=== PATIENT | female | born 1980 | race Caucasian/White ===

== ENCOUNTER 2019-10-14 11:03 | Day surgery (SDC) | payer OTHER ==
[2019-10-14 14:00] VITALS: TEMP 98
[2019-10-14 14:37] VITALS: BP 113/66; PULSE 84
--- NOTE | 2019-10-16 18:33 | PATH ---
Surgical Pathology Report Patient Name: ABHISHEK GARCIA [facility]. Rec. #: [id number] /Age/Gender: 1980 (Age: 38) / F Account: [id number] Location: U-ENDOSCOPY Taken: 10/14/2019 Received: 10/15/2019 Reported: 10/16/2019 Physicians: Keysha Duran M.D. Specimen(s) Received A: DUODENUM B: ANTRUM, GREATER CURVATURE C: ANTRUM, LESSER CURVATURE D: ANGULARIS E: BODY, GREATER CURVATURE F: BODY, LESSER CURVATURE G: ASCENDING COLON POLYP H: ASCENDING COLON POLYP I: SIGMOID POLYP Clinical History Vomiting, constipation Postoperative diagnosis: Normal endoscopy, colon polyps Final Diagnosis A. DUODENUM, BIOPSY: DUODENAL MUCOSA WITHOUT SIGNIFICANT PATHOLOGIC FINDINGS. B. STOMACH, ANTRUM, GREATER CURVATURE, BIOPSY: GASTRIC ANTRAL MUCOSA WITH MILD CHRONIC GASTRITIS. IMMUNOHISTOCHEMICAL STAIN FOR H. PYLORI IS NEGATIVE. C. STOMACH, ANTRUM, LESSER CURVATURE, BIOPSY: GASTRIC ANTRAL MUCOSA WITH MILD CHRONIC GASTRITIS. IMMUNOHISTOCHEMICAL STAIN FOR H. PYLORI IS NEGATIVE. D. STOMACH, ANGULARIS, BIOPSY: GASTRIC BODY MUCOSA WITH MILD CHRONIC GASTRITIS. IMMUNOHISTOCHEMICAL STAIN FOR H. PYLORI IS NEGATIVE. E. STOMACH, BODY, GREATER CURVATURE, BIOPSY: GASTRIC BODY MUCOSA WITH MODERATE CHRONIC FOCAL ACTIVE GASTRITIS. IMMUNOHISTOCHEMICAL STAIN FOR H. PYLORI IS NEGATIVE. F. STOMACH, BODY, LESSER CURVATURE, BIOPSY: GASTRIC BODY MUCOSA WITH MODERATE CHRONIC GASTRITIS AND FOCAL INTESTINAL METAPLASIA. NO DYSPLASIA IDENTIFIED. IMMUNOHISTOCHEMICAL STAIN FOR H. PYLORI IS NEGATIVE. G. ASCENDING COLON, POLYP, POLYPECTOMY: TUBULAR ADENOMA. H. ASCENDING COLON, POLYP, POLYPECTOMY: MATURE FIBROADIPOSE TISSUE WITH OVERLYING HYPERPLASTIC COLONIC MUCOSA CONSISTENT WITH SUBMUCOSAL LIPOMA. I. SIGMOID COLON, POLYP, POLYPECTOMY: HYPERPLASTIC POLYP. Electronically Signed Verna Childers M.D. Gross Description A. Received in formalin, labeled "biopsy duodenum" are 3 bonner, irregular portions of soft tissue averaging 0.3 cm. in greatest dimension. The specimens are submitted in toto in one cassette. B. Received in formalin, labeled "biopsy antrum greater curvature" are 4 bonner, irregular portions of soft tissue ranging from 0.2-0.4 cm. in greatest dimension. The specimens are submitted in toto in one cassette. C. Received in formalin, labeled "biopsy antrum lesser curvature" are 4 bonner, irregular portions of soft tissue ranging from 0.3-0.4 cm. in greatest dimension. The specimens are submitted in toto in one cassette. D. Received in formalin, labeled "biopsy angularis" are 2 bonner, irregular portions of soft tissue measuring 0.3 and 0.4 cm. in greatest dimension. The specimens are submitted in toto in one cassette. E. Received in formalin, labeled "biopsy of body greater curvature" are 3 bonner, irregular portions of soft tissue ranging from 0.2-0.3 cm. in greatest dimension. The specimens are submitted in toto in one cassette. F. Received in formalin, labeled "biopsy body lesser curvature" are 4 bonner, irregular portions of soft tissue ranging from 0.2-0.3 cm. in greatest dimension. The specimens are submitted in toto in one cassette. G. Received in formalin, labeled "biopsy ascending polyp" are 3 bonner, irregular portions of soft tissue ranging from 0.2-0.7 cm. in greatest dimension. The specimens are submitted in toto in one cassette. H. Received in formalin labeled "polyp ascending colon" are 2 bonner portions of soft tissue measuring 0.5 and 0.7 cm in greatest dimension. The specimens are submitted in toto in one fat. I. Received in formalin, labeled "biopsy sigmoid polyp" is a bonner, irregular portion of soft tissue measuring 0.6 cm. in greatest dimension. The specimen is submitted in toto in one cassette. 10/15/2019 [facility]
== END 2019-10-14 14:47 | disposition home or self-care (01) ==
LOC: JASU-ENDO 11:03
PROVIDERS: ATTEND Internal Medicine Gastroenterology
PROC: 0DBN8ZX Excision of Sigmoid Colon, Via Natural or Artificial Opening Endoscopic, Diagnostic (ICD-10-PCS; 2019-10-14)
PROC: 0DBK8ZX Excision of Ascending Colon, Via Natural or Artificial Opening Endoscopic, Diagnostic (ICD-10-PCS; principal; 2019-10-14 12:45)
DX: R19.4 Change in bowel habit (principal); R11.0 Nausea; D12.2 Benign neoplasm of ascending colon; D12.5 Benign neoplasm of sigmoid colon
CPT/HCPCS: 81025; 88305-TC; 88342-TC

== ENCOUNTER 2022-12-05 00:14 | Observation (INO) | payer OTHER ==
[2022-12-05 00:48] VITALS: BMI 28.3
[2022-12-05] MEDS ORDERED: ACETAMINOPHEN 500 MG TABLET (FP) PO ONE (01:24)
[2022-12-05] MEDS ORDERED: ACETAMINOPHEN 500 MG TABLET (FP) ONE (01:51)
[2022-12-05 02:18] LABS: BASO % 0.1 % (0-2.0); EOS % 2.7 % (0-4.5); HEMATOCRIT 35.2 % (32.4-45.2); HEMOGLOBIN 11.6 GM/dL (10.7-15.3); LYMPH % 21.9 % (8-40); MCH 25.5 pg (25.7-33.7); MEAN CELL VOLUME 77.3 fl (80-96); MONO % 7.3 % (3.8-10.2); PLATELET COUNT 336 10^3/uL (134-434); RBC 4.55 M/mm3 (3.60-5.2); RDW 14.7 % (11.6-15.6); WHITE BLOOD COUNT 8.1 K/mm3 (4.0-10.0)
[2022-12-05 02:28] LABS: INR 1.08 (0.83-1.09); PROTHROMBIN TIME (PATIENT) 12.5 SEC (9.7-13.0)
[2022-12-05 02:30] LABS: ACTIVATED PTT 34.9 SECONDS (25.2-36.5)
[2022-12-05 02:31] LABS: POTASSIUM 3.8 mmol/L (3.5-5.1)
[2022-12-05 02:33] LABS: ALBUMIN 4.1 g/dl (3.4-5.0); BLOOD UREA NITROGEN 11.8 mg/dL (7-18)
[2022-12-05 02:37] LABS: CREATININE 0.8 mg/dL (0.55-1.3)
[2022-12-05 02:38] LABS: BILIRUBIN,TOTAL 0.4 mg/dL (0.2-1); TOT PROT 7.7 g/dl (6.4-8.2)
[2022-12-05 02:41] LABS: N-TERMINAL BNP 51.5 pg/ml (5-125)
[2022-12-05] MEDS ORDERED: ASPIRIN 81 MG CHEWABLE TABLETS PO ONE (06:06)
[2022-12-05] MEDS ORDERED: ASPIRIN 81 MG CHEWABLE TABLETS ONE (06:10)
[2022-12-05] MEDS ORDERED: METOPROLOL TARTRATE 25 MG TABLET (FP) PO ONE (06:28)
[2022-12-05] MEDS ORDERED: METOPROLOL TARTRATE 25 MG TABLET (FP) ONE (06:32)
[2022-12-05] MEDS ORDERED: LEVOTHYROXINE NA 50 MCG TABLET (FP) PO SCH (07:00)
[2022-12-05] MEDS ORDERED: LEVOTHYROXINE NA 50 MCG TABLET (FP) ONE (08:54)
[2022-12-05 14:01] VITALS: BP 101/72; PULSE 82; RESP 17; TEMP 98.1
== END 2022-12-05 14:04 | disposition home or self-care (01) ==
LOC: JER 00:14 → UNDOADMOB 07:25 → INTOOBSV 07:25 → JERBED 07:25
PROVIDERS: ADMIT Internal Medicine; ATTEND Internal Medicine
DX: I21.4 Non-ST elevation (NSTEMI) myocardial infarction (principal); R77.8 Other specified abnormalities of plasma proteins; E03.9 Hypothyroidism, unspecified; J45.909 Unspecified asthma, uncomplicated; D25.9 Leiomyoma of uterus, unspecified; F17.210 Nicotine dependence, cigarettes, uncomplicated; R00.2 Palpitations
CPT/HCPCS: 0241U-QW; 36415; 71045-TC-FY; 71275-TC; 80053; 83880; 84439; 84443; 84484; 84703; 85025; 85379; 85610; 85730; 93005; 93010; 93351; 99285-25; G0378; Q9967